=== PATIENT | male | born 1980 | race African-American/Black ===

== ENCOUNTER 2020-01-01 21:37 | Emergency (ER) | payer MEDICAID ==
[~2020-01-01] VITALS: Ht 175.3 cm; Wt 95.7 kg
--- NOTE | 2020-01-01 21:49 | NUR ---
at bedside for MSE
[2020-01-01] MEDS ORDERED: OLANZAPINE 5 MG TABLET ONE (21:59)
[2020-01-01] MEDS ORDERED: OLANZAPINE 5 MG TABLET PO ONE (22:00)
--- NOTE | 2020-01-01 22:48 | NUR ---
Patient discharged to home in stable condition. Written and verbal after care instructions given. Patient verbalizes understanding of instructions. Stressed follow up or return to ER for worsening s/s. Pt ambulated out of ER with stable gait. All belongings with pt.
[2020-01-01 22:49] VITALS: BP 132/73
== END 2020-01-01 23:08 | disposition home or self-care (01) ==
LOC: ER 21:40
DX: Z76.0 Encounter for issue of repeat prescription (principal); F20.9 Schizophrenia, unspecified; F17.210 Nicotine dependence, cigarettes, uncomplicated; F14.10 Cocaine abuse, uncomplicated; R00.0 Tachycardia, unspecified; Z59.0 Homelessness; R03.0 Elevated blood-pressure reading, without diagnosis of hypertension
CPT/HCPCS: A4663; J7030

== ENCOUNTER 2020-01-01 23:45 | Emergency (ER) | payer MEDICAID ==
[~2020-01-01] VITALS: Ht 175.3 cm; Wt 95.7 kg
--- NOTE | 2020-01-01 23:50 | NUR ---
at bedside for MSE
[2020-01-02] MEDS ORDERED: HYDROCODONE/APAP 5-325MG TABLET PO ONE
[2020-01-02] MEDS ORDERED: HYDROCODONE/APAP 5-325MG TABLET ONE (00:02)
[2020-01-02 00:17] LABS: BASOPHILS % (AUTO) 0.3 % (0.0-2.0); EOSINOPHILS % (AUTO) 0.1 % (0.0-7.0); HEMATOCRIT 41.1 % (36.7-47.1); HEMOGLOBIN 14.1 g/dL (12.5-16.3); LYMPHOCYTES # (AUTO) 1.1 K/uL (20.0-40.0); LYMPHOCYTES % (AUTO) 8.2 % (20.5-51.5); MEAN CORPUSCULAR HEMOGLOBIN 28.8 uug (23.8-33.4); MEAN CORPUSCULAR HGB CONC 34 g/dL (32.5-36.3); MEAN CORPUSCULAR VOLUME 83.6 fL (73.0-96.2); MONOCYTES # (AUTO) 0.8 K/uL (2.0-10.0); MONOCYTES % (AUTO) 5.7 % (0.0-11.0); NEUTROPHILS # (AUTO) 11.5 K/uL (1.8-8.9); NEUTROPHILS % (AUTO) 85.7 % (38.5-71.5); PLATELET COUNT (AUTO) 266 K/uL (152-348); RED BLOOD CELL COUNT(AUTO) 4.91 MIL/uL (4.06-5.63); WHITE BLOOD COUNT (AUTO) 13.4 K/uL (3.6-10.2)
[2020-01-02 00:23] LABS: CARBON DIOXIDE 25 mmol/L (21-32); CHLORIDE 104 mmol/L (98-107); CREATININE 1.6 mg/dL (0.6-1.3); GLUCOSE 96 mg/dL (74-106); POTASSIUM 3.9 mmol/L (3.5-5.1); UREA NITROGEN, BLOOD 20 mg/dL (7-18)
[2020-01-02 00:25] LABS: ETHANOL < 3 MG/DL (0-0)
[2020-01-02 00:36] LABS: ACETAMINOPHEN < 2.0 ug/mL (10-30); ALANINE AMINOTRANSFERASE 52 U/L (16-63); ALKALINE PHOSPHATASE 102 U/L (50-136); ASPARTATE AMINOTRANSFERASE 139 U/L (15-37); BILIRUBIN,DIRECT 0.1 mg/dL (0.0-0.2); BILIRUBIN,TOTAL 0.4 mg/dL (0.2-1.0); TOTAL PROTEIN, SERUM 8.3 g/dL (6.4-8.2)
[2020-01-02] MEDS ORDERED: IV NORMAL SALINE 1000 ML BAG IV ONE (02:15)
[2020-01-02 03:36] LABS: *BLOOD, URINE 3+ (NEGATIVE); *CLARITY,URINE SLIGHTLY CLOUDY (CLEAR); *COLOR,URINE AMBER (YELLOW); *KETONES,URINE 1+ (NEGATIVE); *UROBILINOGEN,URINE 0.2 E.U./dl (NORMAL); LEUKOCYTE ESTERASE ,URINE NEGATIVE (NEGATIVE); NITRITE, URINE NEGATIVE (NEGATIVE); PH,URINE 5.5 (5.0-8.0); UGLUCOSE NEGATIVE (NEGATIVE)
[2020-01-02 03:39] LABS: *AMPHETAMINE, URINE POSITIVE (NEGATIVE); *CANNABINOID, URINE NEGATIVE (NEGATIVE); *COCCAINE, URINE NEGATIVE (NEGATIVE); *OPIATE, URINE NEGATIVE (NEGATIVE); *PHENCYCLIDINE SCREEN,URINE NEGATIVE (NEGATIVE)
[2020-01-02 03:40] LABS: *BILIRUBIN,URIN 1+ (NEGATIVE)
[2020-01-02 03:43] LABS: BACTERIA,URINE NONE SEEN /HPF (NONE SEEN); SQUAMOUS EPITHELIAL CELL,UR FEW /HPF (NONE SEEN); WBC,URINE 0-3 /HPF (0-3)
[2020-01-02 03:44] LABS: MUCUS,URINE FEW /LPF (0-FEW); SPERM,URINE MODERATE /HPF (NONE SEEN); URINE AMORPHOUS URATE MODERATE /HPF
--- NOTE | 2020-01-02 04:49 | NUR ---
Faxed clinical documents to [facility], documents received at this time. Awaiting call back for pending admission of pt.
--- NOTE | 2020-01-02 06:25 | NUR ---
Call made to Marisela Marcus. Report given to Lisbet at [phone]. Ext: [phone]. Pt is resting in room at this time. No acute distress noted.
--- NOTE | 2020-01-02 06:38 | NUR ---
[facility] ambulance will filler picker with ETA of 40mins.
--- NOTE | 2020-01-02 07:38 | NUR ---
Jones CROWELL called Marisela-Kamron Beal to confirm that the Admitting doctor is Dr. Skinner. Pt left with [facility] in stable condition, with Jones CROWELL giving report. All patients belongings with patient as verbalized.
== END 2020-01-02 07:40 ==
LOC: ER 23:47
DX: F29 Unspecified psychosis not due to a substance or known physiological condition (principal); F20.9 Schizophrenia, unspecified; F14.10 Cocaine abuse, uncomplicated; Z91.010 Allergy to peanuts; F17.210 Nicotine dependence, cigarettes, uncomplicated; R79.89 Other specified abnormal findings of blood chemistry; Z20.828 Contact with and (suspected) exposure to other viral communicable diseases
CPT/HCPCS: 36415; 85025; G0480; J7030